=== PATIENT | female | born 1955 | race Caucasian/White ===

== ENCOUNTER 2018-05-29 19:05 | Emergency (ER) | payer BC, SELFPAY ==
[2018-05-29 19:07] VITALS: BP 123/75; PULSE 74; RESP 18; TEMP 36.7; O2SAT 99; BMI 27.3
[2018-05-29 19:10] VITALS: O2SAT 100
--- NOTE | 2018-05-29 19:43 | RAD_ITS ---
STUDY: X-RAY - LUMBAR SPINE REASON FOR EXAM: Female, 63 years old. Fall. TECHNIQUE: 3 view(s) of the lumbar spine were obtained. COMPARISON: None FINDINGS: Normal lumbar lordosis. There is no substantial scoliosis. There is a normal alignment of the vertebrae. Normal vertebral bodies and endplates. Normal disc space heights. There is no demonstrated fracture. Degenerative changes seen of the facet joints at L4-L5 and L5-S1. The soft tissue structures are unremarkable. RAD/Lumbar Spine 2 or 3 Views IMPRESSION: No definite acute abnormality. Electronically Signed: Ji Carpenter MD at 20:33 EDT , Service support ,
--- NOTE | 2018-05-29 19:44 | ED.VISSUMM ---
- ER Visit Summary Date of Service: 05/29/18 Chief Complaint: Fell backwards approximately 3-4 feet History of Present Illness: The patient is a 63 F history of M?ni?re's disease, depression and left ear hearing loss. She was walking up into their mobile camper when she lost her balance fell backwards and landed on a cement patio. Denies hitting her head. No LOC. She is on no blood thinners. No neck pain. No numbness or tingling. Complaining of lower back pain and left forearm pain. She is right-hand dominant. Denies any chest or abdominal pain. No weakness. Physical Examination: Older female backboarded no c-collar. Vital signs stable afebrile. at bedside. H EENT exam pupils round reactive light. No signs of facial trauma. No dental trauma. No tenderness or hematomas to her scalp. No lacerations. C-spine nontender. Trachea midline. Normal range of motion to her neck. Lungs clear to auscultation bilaterally. Chest wall nontender. Heart regular rate and rhythm no murmur. Abdomen soft and nontender. Normal bowel sounds. No peritoneal signs. Pelvic girdle intact. She is moving all 4 extremities. They are neurovascularly intact. There are no deformities. She has normal range of motion of both upper and lower extremities. Mild tenderness to her mid to distal third left forearm. No deformity no lacerations. Neurologically she is awake and alert. No focal motor or sensory deficits. He is answering questions. Following commands. Acting normally. Her back exam the cervical and thoracic spine are nontender. She is tenderness over her upper lumbar spine around L1. There is no ecchymosis or bruising. The posterior pelvis and sacrum are nontender. Her GCS is 15. Test Results: Left forearm x-ray 2 views questionable left radial neck fracture. A dedicated left elbow x-ray was obtained and shows a nondisplaced radial neck fracture. As read by the radiologist and myself. Lumbar spine x-ray did not show any acute abnormality. There are chronic degenerative changes. Due to the patient's discomfort I did obtain a CT of the lumbar spine. Which showed a T11 spinous process fracture. A T12 compression fracture with no retropulsion and an L4-5 disc with spinal stenosis. Emergency Department Course and Treatment: Patient treated with p.o. Zofran for nausea. She did not want anything for pain. Patient later requested some Tylenol. And then also wanted ibuprofen. She does not want any narcotics at this time for pain. Her lower extremities remained neurovascularly intact. Treatment Plan: [place] as needed for pain. Otherwise Tylenol and Motrin. Follow-up with [facility] for further evaluation of her T11 and T12 spinous process and compression fracture. Also further evaluation of her left radial neck nondisplaced fracture. Disposition: Discharge Impression: Acute fall from approximately 3 feet. Acute T11 spinous process fracture Acute T12 compression fracture about 20% with no retropulsion Incidental finding of L4-5 disc with spinal stenosis Acute left forearm nondisplaced radial neck fracture Long-arm posterior splint by ER physician This note was generated with [employer] dictation software. It may contain incorrect words, spelling, and punctuation that were not noted in review of the chart prior to signing ED Disposition - Plan for ED Patient: Chief Complaint: Fall Referrals: Sinai Castillo [Primary Care Provider] -
[2018-05-29] MEDS: Ondansetron ODT 4 MG Tablet PO (19:50)
--- NOTE | 2018-05-29 20:00 | RAD_ITS ---
STUDY: X-RAY - LEFT RADIUS AND ULNA REASON FOR EXAM: Female, 63 years old. Fall. Pain. TECHNIQUE: 2 view(s) of the forearm. COMPARISON: None. FINDINGS: Cannot exclude a nondisplaced fracture of the radial neck. Recommend complete elbow series. No other acute abnormalities are seen or suggested. RAD/Forearm 2 Views IMPRESSION: Cannot exclude a nondisplaced fracture of the radial neck. Electronically Signed: Ji Carpenter MD at 20:29 EDT , Service support ,
[2018-05-29] MEDS: Acetaminophen 500 MG Tablet 1000 MG PO (20:33)
--- NOTE | 2018-05-29 20:59 | CT_ITS ---
STUDY: CT LUMBAR SPINE WITHOUT CONTRAST REASON FOR EXAM: Female, 63 years old. Fell out of camper, landed on back. Pain at the T12/L1 level. RADIATION DOSAGE (If Supplied By Facility): CTDIvol = ( 17.38 ) mGy, DLP = ( 548.39 ) mGycm TECHNIQUE: The patient was scanned in a multi detector CT scanner. High resolution transaxial imaging was performed. Images were obtained from to . Sagittal and coronal images were reconstructed. Individualized dose optimization techniques were used for this CT. COMPARISON: None FINDINGS: Normal lumbar lordosis. There is no substantial scoliosis. There is a nondisplaced fracture of the spinous process of T11. There is a mild, acute compression fracture of the T12 vertebral body, with approximately 20% loss of vertebral body height. There is no bony retropulsion. T12-L1: Unremarkable. L1-2: Normal endplates. Normal disc height and morphology. Normal bilateral facet joints. Normal central canal and bilateral lateral recesses. Normal bilateral intervertebral neural foramina. L2-3: Normal endplates. Normal disc height and morphology. Normal bilateral facet joints. Normal central canal and bilateral lateral recesses. Normal bilateral intervertebral neural foramina. L3-4: Normal endplates. Normal disc height and morphology. Normal bilateral facet joints. Normal central canal and bilateral lateral recesses. Normal bilateral intervertebral neural foramina. L4-5: Normal endplates. Normal disc height and morphology. There is 3 mm degenerative anterolisthesis. There is a mild annular disc bulge. There is marked facet hypertrophy. There is canal stenosis due to anterolisthesis, disc bulge, and facet hypertrophy. Normal bilateral lateral recesses. Normal bilateral intervertebral neural foramina. L5-S1: Normal endplates. Normal disc height and morphology. There is 6 mm degenerative anterolisthesis. No spondylolysis. There is marked facet hypertrophy. Normal central canal and bilateral lateral recesses. Normal bilateral intervertebral neural foramina. Normal visualized paraspinous soft tissue structures. CT/Spine Lumbar without Contrast IMPRESSION: 1. Nondisplaced T11 spinous process fracture. 2. Acute T12 compression. 3. Mild L4-5 and L5-S1 anterolisthesis appears degenerative. 4. L4-5 canal stenosis. Electronically Signed: Margie Vargas MD at 21:47 EDT Tel , Service support ,
--- NOTE | 2018-05-29 21:15 | RAD_ITS ---
STUDY: X-RAY - LEFT ELBOW REASON FOR EXAM: Female, 63 years old. Fall, left arm pain. Question radial fracture. TECHNIQUE: 4 view(s) of the elbow. COMPARISON: None. FINDINGS: There is a nondisplaced, minimally impacted fracture of the radial neck. No angulation. No additional fracture is demonstrated. There is no obvious joint effusion. RAD/Elbow min 3 Views IMPRESSION: Nondisplaced radial neck fracture. Electronically Signed: Margie Vargas MD at 21:49 EDT Tel , Service support ,
[2018-05-29 21:28] VITALS: BP 131/75; PULSE 80; RESP 17; O2SAT 99
[2018-05-29] MEDS: Ibuprofen 600 MG Tablet PO (21:51)
--- NOTE | 2018-05-29 21:58 | ED.DEP ---
ED Disposition - Plan for ED Patient: Disposition: Home or Assisted Living Chief Complaint: Fall Instructions: ED Fx Comp Vertebral, ED Fx Radial Head Prescriptions: Hydrocodone/Acetaminophen [[place] 5-325 Tablet] 1 ea PO Q4H PRN PRN #20 tab PRN Reason: Pain Referrals: Harry London DO [STAFF PHYSICIAN] - As soon as possible Jemal Smith MD [NON-STAFF] - As Needed Additional Instructions: You have a nondisplaced fracture of your elbow. Ice and elevate. Tylenol and/or Motrin for pain. [place] for more severe pain. You also have a compression fracture of your T12 vertebral body. You have a spinous process fracture of your T11 vertebrae. You also have an incidental finding of a lumbar disc at L4-5. Follow-up with an orthopedic doctor for your elbow fracture. They can also evaluate your thoracic spine fractures
--- NOTE | 2018-05-29 22:03 | DCINST.ED_ITS ---
ED Disposition - Plan for ED Patient: Disposition: Home or Assisted Living Chief Complaint: Fall Instructions: ED Fx Comp Vertebral, ED Fx Radial Head Prescriptions: Hydrocodone/Acetaminophen [[place] 5-325 Tablet] 1 ea PO Q4H PRN PRN #20 tab PRN Reason: Pain Referrals: Harry London DO [STAFF PHYSICIAN] - As soon as possible Jemal Smith MD [NON-STAFF] - As Needed Additional Instructions: You have a nondisplaced fracture of your elbow. Ice and elevate. Tylenol and/or Motrin for pain. [place] for more severe pain. You also have a compression fracture of your T12 vertebral body. You have a spinous process fracture of your T11 vertebrae. You also have an incidental finding of a lumbar disc at L4-5. Follow-up with an orthopedic doctor for your elbow fracture. They can also evaluate your thoracic spine fractures
[2018-05-29] MEDS: HYDROcodone Bitartrate/Apap 5/325 Tablet PO (22:42)
== END 2018-05-29 22:52 | disposition home or self-care (01) ==
PROVIDERS: Emergency Provider Emergency Medicine; Family Provider Family Medicine; PCP Family Medicine
DX: S22.081A Stable burst fracture of T11-T12 vertebra, initial encounter for closed fracture (principal); S52.135A Nondisplaced fracture of neck of left radius, initial encounter for closed fracture; W17.89XA Other fall from one level to another, initial encounter; Y93.01 Activity, walking, marching and hiking; Y92.028 Other place in mobile home as the place of occurrence of the external cause; M48.061 Spinal stenosis, lumbar region without neurogenic claudication; F32.9 Major depressive disorder, single episode, unspecified
CPT/HCPCS: 29105; 72100; 72131; 73080; 73090; 99285